=== PATIENT | male | born 1995 | race Caucasian/White ===

== ENCOUNTER 2017-02-12 07:31 | Emergency (ER) | payer OTHER, MEDICAID ==
[~2017-02-12] VITALS: Ht 170.2 cm; Wt 68.0 kg
[2017-02-12 07:31] VITALS: BP 136/96; PULSE 129; RESP 19; TEMP 98.2; O2SAT 99
--- NOTE | 2017-02-12 07:31 | NUR ---
BROUGHT IN BY ACLS JOSE EDUARDO 64 AND MADISON CHACON, PLACED IN BED #5 AND TRIAGED. REPORT GIVEN TO TAMARA
--- NOTE | 2017-02-12 07:32 | NUR ---
Suicide risk/lethality admission assessment, patient observation status form and patient and room/enviroment safety checklist completed and placed in chart.
--- NOTE | 2017-02-12 07:33 | NUR ---
Patient on continuos video monitoring.
--- NOTE | 2017-02-12 07:35 | NUR ---
Patient in stable condition, alert and oriented x4. Degowned in room, all contraband/belongings removed, cabinents locked (see safety worksheet). Patient states that he climbed onto roof early this AM because grandmother told him to get out, and then he came down and took eight 1mg xanex to "reduce pain because of the effects on MACARIO" at four or five AM. Patient denies any suicidal or homicidal ideation. Patient denies any injuries, no injuries/deformities noted to body. Full suicide precautions in place. No other complaints/injuries per patient or noted. Addendum: 02/12/17 at 0945 by MARSHA Injury is noted to neck: red discoloration, patient states from "irritation"
--- NOTE | 2017-02-12 07:36 | NUR ---
Security wanded patient, no contraband found.
--- NOTE | 2017-02-12 07:36 | NUR ---
Old healed self inflicted laceration sites (scarring) noted to bilateral arms/hands/wrists along with healed scab right to right hand. Patient states he attempted to cut self years ago.
--- NOTE | 2017-02-12 07:50 | NUR ---
Called Poison Control at [phone] and spoke with Kuldip. Per recommendations: Toxicology screening, Aspirin and Tylenol Levels, Observation and supportive care. Dr. Ackerman notified. Will continue to monitor patient.
--- NOTE | 2017-02-12 07:51 | NUR ---
ER Dr. Ackerman at bedside examining patient.
--- NOTE | 2017-02-12 08:00 | NUR ---
Patient now states that reason for red discoloration around neck is because he placed belt around his neck (when unknown) to make his grandmother upset. States he did not do so with intent to harm self.
[2017-02-12 08:08] LABS: BASOPHILS # (AUTO) 0.1 K/uL (0.0-0.2); BASOPHILS % (AUTO) 0.8 % (0.0-2.0); EOSINOPHILS % (AUTO) 0.3 % (0.0-4.0); HEMATOCRIT 46.7 % (36-54); HEMOGLOBIN 15.3 g/dL (14.0-18.0); LYMPHOCYTES # (AUTO) 1.1 K/uL (1.0-5.5); LYMPHOCYTES % (AUTO) 14.6 % (20.5-51.5); MEAN CORPUSCULAR HEMOGLOBIN 29 pg (27-31); MEAN CORPUSCULAR HGB CONC 33 % (32-36); MEAN CORPUSCULAR VOLUME 88 fL (79.0-98.0); MONOCYTES # (AUTO) 0.7 K/uL (0.0-1.0); MONOCYTES % (AUTO) 9.3 % (1.7-9.3); NEUTROPHILS # (AUTO) 5.8 K/uL (1.8-7.7); PLATELET COUNT (AUTO) 261 K/uL (130-430); RED BLOOD CELL COUNT(AUTO) 5.34 MIL/uL (4.2-6.2); RED CELL DISTRIBUTION WIDTH 12.6 % (9.0-15.0); WHITE BLOOD COUNT (AUTO) 7.7 K/uL (4.8-10.8)
[2017-02-12 08:23] LABS: ALANINE AMINOTRANSFERASE 16 U/L (12-78); ALBUMIN 4.1 g/dL (3.4-4.8); ANION GAP 11 (5-15); ASPARTATE AMINOTRANSFERASE 17 U/L (10-37); CALCIUM 9.4 mg/dL (8.4-11.0); CHLORIDE 101 mmol/L (98-107); CREATININE 0.95 mg/dL (0.55-1.30); GLUCOSE 98 mg/dL (70-99); SODIUM SERUM 140 mmol/L (136-145); TOTAL BILIRUBIN 0.4 mg/dL (0.0-1.0)
[2017-02-12 08:24] LABS: ACETAMINOPHEN < 1 ug/mL (1-30); GFR AFRICAN AMERICAN 127 mL/min (>90); SALICYLATE 1 mg/dL (3-30)
[2017-02-12 08:25] LABS: ALCOHOL, BLOOD < 3 mg/dL (<10); UREA NITROGEN, BLOOD 11 mg/dL (8-21)
--- NOTE | 2017-02-12 08:50 | NUR ---
Urine sample sent to lab.
[2017-02-12 09:21] LABS: BARBITURATE, URINE NEGATIVE (NEG <=200); BENZODIAZEPINE, URINE POSITIVE (NEG <=150); CANNABINOID, URINE NEGATIVE (NEG <=50); COCAINE, URINE NEGATIVE (NEG <=150); METHAMPHETAMINES SCREEN,URINE NEGATIVE (NEG <=500); OPIATE, URINE NEGATIVE (NEG <=100); PHENCYCLIDINE SCREEN,URINE NEGATIVE (NEG <=25); UR TRICYCLIC ANTIDEPRESSANTS NEGATIVE (NEG <=300); URINE AMPHETAMINE POSITIVE (NEG <=500); URINE METHADONE NEGATIVE (NEG <=200); URINE OXYCODONE SCREEN NEGATIVE (NEG <=100); URINE PROPOXYPHENE SCREEN NEGATIVE (NEG <=300)
--- NOTE | 2017-02-12 09:35 | NUR ---
Patient laying in bed, stable condition. Patient denies any suicidal or homicidal ideation. Monitoring continuously on video monitor.
--- NOTE | 2017-02-12 11:05 | NUR ---
Hilda from [facility] called asking about patient, all questions answered. Informed her that we are attempted to get pyschiatric evaluation for patient.
--- NOTE | 2017-02-12 11:21 | NUR ---
Patient states his grandmother is here talking about him. Grandmother is not present. Mother is at bedside. Denies any suicidal/homicidal ideations.
--- NOTE | 2017-02-12 11:50 | NUR ---
Hilda from [facility] called and stated that they may be able to send their own pyschiatrist for evaluation and she would call back for confirmation. Dr. Ackerman and MT informed.
--- NOTE | 2017-02-12 12:13 | NUR ---
SPOKE WITH ENA FROM POISON CONTROL, ALL QUESTIONS ANSWERED. ENA STATES SHE WILL CLOSE OUT CASE, JUST SUPPORTIVE CARE AT THIS TIME. DR RDZ AWARE
--- NOTE | 2017-02-12 12:22 | NUR ---
Spoke with Zachary at [facility], all questions answered, vital signs given. Stated can not take patient until heart rate is below 100. Will monitor. and MT aware.
--- NOTE | 2017-02-12 13:32 | NUR ---
Patient is stable sitting up in bed, talking to mother at bedside. No auditory/verbal halluciniations or suicidal/homicidal ideation.
--- NOTE | 2017-02-12 13:39 | NUR ---
Called dietary for regular safety tray. OK per Dr. Ackerman.
--- NOTE | 2017-02-12 13:51 | NUR ---
Spoke with Zachary at [facility], informed that heart rate has decreased to 111, stated patient is medically cleared for the facility and she will be sending clinician out to evaluate.
--- NOTE | 2017-02-12 13:55 | NUR ---
Clinician called to state she will be here about an hour for evaluation. Informed that patient is in bed 5.
--- NOTE | 2017-02-12 15:02 | NUR ---
Patient is sitting up in bed with mother at bed side. No suicidal/ homicidal ideations.
--- NOTE | 2017-02-12 15:23 | NUR ---
Clinician sent from [facility] Tiki here to evaluate patient.
--- NOTE | 2017-02-12 16:20 | NUR ---
Clinician sent from [facility] evaluated patient and placed patient on 5150 hold due to danger to self. Clinician spoke with mother (present). Addendum: 02/12/17 at 1627 by MARSHA original hold paperwork and PET evaluation received from Clinician, copies made for chart.
--- NOTE | 2017-02-12 16:26 | NUR ---
Hilda called from [facility] for patient's medication list. Medications reported to Hilda from a list provided by patient.
--- NOTE | 2017-02-12 16:45 | NUR ---
Patient walking out of room attempting to exit ER, security called. Paranoid behavior noted, stating that "people are leaking his information". Security escorted patient back to room, placed in bed, stable condition. No suicidal or homicidal ideation per patient or noted.
--- NOTE | 2017-02-12 17:40 | NUR ---
Called [facility]. Gave report to Antonio. Estimated time of pickup at 1800.
[2017-02-12 17:52] VITALS: BP 112/85; PULSE 111; RESP 18; TEMP 98.6; O2SAT 99
--- NOTE | 2017-02-12 17:52 | NUR ---
Patient to be transferred to [facility]. Is being transferred due to psychiatric care. Receiving facility has accepting physician and available space. ER physician has signed transfer form. Patient or responsible green party has agreed to transfer and signed form. Patient belongings provided to medics by security and will be sent with patient. Copy of nursing notes, lab reports, EKG, Physicians Orders and X-rays to be sent with patient. Patient left in stable condition.
== END 2017-02-12 17:52 ==
LOC: SED 07:31
DX: F20.9 Schizophrenia, unspecified (principal); F19.10 Other psychoactive substance abuse, uncomplicated; F31.9 Bipolar disorder, unspecified; F17.200 Nicotine dependence, unspecified, uncomplicated; Z88.2 Allergy status to sulfonamides; Z91.040 Latex allergy status
CPT/HCPCS: 36415; 80053; 80307; 85025; 93005; 99285; G0480; G0481; G0482